=== PATIENT | male | born 1950 | race Hispanic/Latino ===

== ENCOUNTER → 2017-11-01 | Outpatient (CLI) | payer OTHER ==
[~2017-11-01] MED LIST: ASPI-1114 PO; BACL10TA PO; GLIP10TA9 PO; LOSA25TA21 PO; METF500T6 PO; METO25TA6 PO; NPH,100V11 SQ; PANT40TA PO; RANI150C4 PO; ROSU40 PO; VITAMIN B6 PO
== END | disposition home or self-care (01) ==
LOC: RAH 15:50
PROVIDERS: ATTEND Internal Medicine
DX: M54.5 Low back pain (principal)
CPT/HCPCS: 72100

== ENCOUNTER 2018-10-31 04:00 | Observation (INO) | payer OTHER ==
[~2018-10-31] VITALS: Ht 170.2 cm; Wt 101.2 kg
[~2018-10-31 04:00] MED LIST changes: -LOSA25TA21 PO; +LOSA25TA41 PO; +METF-444 PO; -METF500T6 PO
[2018-10-31 04:21] LABS: APPEARANCE,URINE Clear (CLEAR); BILIRUBIN,URINE Negative (NEGATIVE); COLOR,URINE Yellow (YELLOW); GLUCOSE, URINE (UA) 250 mg/dL (NEGATIVE); KETONES,URINE Negative (NEGATIVE); LEUKOCYTE ESTERASE ,URINE Large (NEGATIVE); NITRATE,URINE Negative (NEGATIVE); OCCULT BLOOD,URINE Small (NEGATIVE); PROTEIN,URINE Negative (NEGATIVE)
[2018-10-31 04:30] LABS: BACTERIA,URINE Few /HPF (None Seen); MUCUS,URINE Rare LPF (None Seen); SQUAMOUS EPITHELIAL CELL,UR Few /HPF (0-2); WBC,URINE 26-50 /HPF (0-1)
[2018-10-31 04:50] LABS: BASOPHILS % (AUTO) 0.4 % (0.0-5.0); EOSINOPHILS % (AUTO) 1.5 % (0.0-8.0); HEMATOCRIT 40.5 % (42-54); MEAN CORPUSCULAR VOLUME 88.1 fL (79-99); MONOCYTES % (AUTO) 3.8 % (3.0-13.0); NEUTROPHILS % (AUTO) 88.3 % (40.0-77.0); PLATELET COUNT (AUTO) 161 K/uL (130-400); RED BLOOD CELL COUNT(AUTO) 4.59 MIL/uL (4.50-6.20); RED CELL DISTRIBUTION WIDTH 13.5 % (11.0-15.5)
[2018-10-31 04:57] LABS: CREATININE 1.1 mg/dL (0.5-1.5); POTASSIUM 4.1 mmol/L (3.5-5.1)
[2018-10-31] MEDS ORDERED: PHENAZOPYRIDINE HCL 200 MG TABLET ONE (05:30)
[2018-10-31] MEDS ORDERED: CEFTRIAXONE SODIUM 1 GM ONE (05:30)
[2018-10-31] MEDS ORDERED: FENTANYL CITRATE PF 50 MCG/1 ML 2ML VIAL ONE (05:31)
[2018-10-31] MEDS ORDERED: ACETAMINOPHEN 325 MG TAB ONE (06:40)
[2018-10-31] MEDS ORDERED: ACETAMINOPHEN 325 MG TAB PO PRN ×2 (08:30→23:45)
[2018-10-31 09:00] VITALS: BP 107/66
[2018-10-31 11:00] VITALS: BP 105/62
[2018-10-31] MEDS ORDERED: CLOP75TA14 PO (11:59)
[2018-10-31] MEDS ORDERED: TAMS-1 PO (11:59)
[2018-10-31] MEDS ORDERED: ATOR40TA71 PO (11:59)
[2018-10-31] MEDS: PHENAZOPYRIDINE HCL 200 MG TABLET PO SCH ×2 (14:48→20:17)
[2018-10-31 16:00] VITALS: BP 151/84
[2018-10-31] MEDS: INSULIN HUMULIN R 100 UNIT/ML 3ML SQ SCH ×2 (16:30→21:00)
[2018-10-31 19:10] VITALS: BP 134/82
[2018-11-01 00:25] VITALS: BP 154/82
[2018-11-01 03:15] VITALS: BP 124/76
[2018-11-01] MEDS ORDERED: CEFTRIAXONE SODIUM 1 GM IVP SCH (06:00)
[2018-11-01] MEDS: INSULIN HUMULIN R 100 UNIT/ML 3ML SQ SCH (06:03)
[2018-11-01 07:30] VITALS: BP 153/78
[2018-11-01] MEDS: PHENAZOPYRIDINE HCL 200 MG TABLET PO SCH (08:24)
[2018-11-01] MEDS ORDERED: ASPIRIN 81MG TAB.CHEW PO SCH (09:00)
[2018-11-01] MEDS ORDERED: TAMSULOSIN HCL 0.4 MG CAP.ER.24H PO SCH (09:00)
[2018-11-01] MEDS ORDERED: CLOPIDOGREL BISULFATE 75 MG TAB PO SCH (09:00)
--- NOTE | 2018-11-01 10:20 | NUR ---
HOSPITALIST DR. KO IN TO SEE PATIENT. ORDERS RECEIVED FOR DISCHARGE.
[2018-11-01] MEDS ORDERED: [UNRECOGNIZED DRUG - CODE] PO (10:26)
[2018-11-01] MEDS ORDERED: PHEN-846 PO (10:33)
--- NOTE | 2018-11-01 11:00 | NUR ---
INSTRUCTIONS DISCHARGE INSTRUCTIONS GIVEN TO PATIENT USING TEACH BACK. NEW PRESCRIPTION PLACED IN PACKET ALONG WITH ALL PRINTED INFORMATION AND MD INSTRUCTIONS. NO QUESTIONS OR CONCERNS VOICED. IV REMOVED WITH TIP INTACT. DIRECT PRESSURE APPLIED UNTIL BLEEDING CONTROLLED THEN SITE COVERED WITH GAUZE AND SECURED WITH A BAND-AID. PENDING RIDE HOME.
== END 2018-11-01 11:39 | disposition home or self-care (01) ==
LOC: EDH 04:00 → EDHIP 07:50 → 4AH 09:00
PROVIDERS: ADMIT Internal Medicine; ATTEND Internal Medicine
DX: N40.0 Benign prostatic hyperplasia without lower urinary tract symptoms (principal); E11.9 Type 2 diabetes mellitus without complications; I10 Essential (primary) hypertension; Z80.0 Family history of malignant neoplasm of digestive organs; Z80.51 Family history of malignant neoplasm of kidney; Z82.0 Family history of epilepsy and other diseases of the nervous system; Z82.3 Family history of stroke; Z82.49 Family history of ischemic heart disease and other diseases of the circulatory system; Z83.3 Family history of diabetes mellitus
CPT/HCPCS: 36415; 80048; 81001; 82948 ×4; 85025; 87077; 87088; 87186; 96374; 99284; A4218; G0378 ×28; J0696 ×2; J3010

== ENCOUNTER 2018-11-15 19:22 | Inpatient (IN) | payer OTHER | END 2018-11-18 17:38 | disposition home or self-care (01) | LOC: EDH 19:22 → EDHIP 21:30 → 3BH 22:43 | DX: R07.9 Chest pain, unspecified (principal); N17.9 Acute kidney failure, unspecified; E11.65 Type 2 diabetes mellitus with hyperglycemia; Z95.5 Presence of coronary angioplasty implant and graft; N18.9 Chronic kidney disease, unspecified; E11.22 Type 2 diabetes mellitus with diabetic chronic kidney disease; I12.9 Hypertensive chronic kidney disease with stage 1 through stage 4 chronic kidney disease, or unspecified chronic kidney disease ==

== ENCOUNTER → 2019-02-20 | Outpatient (CLI) | payer OTHER ==
[~2019-02-20] MED LIST changes: +ATOR40TA71 PO; -BACL10TA PO; +CLOP75TA14 PO; -LOSA25TA41 PO; -METF-444 PO; +METO25 PO; -METO25TA6 PO; -NPH,100V11 SQ; -RANI150C4 PO; -ROSU40 PO; +TAMS-1 PO; -VITAMIN B6 PO
== END | disposition home or self-care (01) ==
LOC: SHCH 10:30
PROVIDERS: ATTEND Internal Medicine Cardiovascular Disease
DX: I65.23 Occlusion and stenosis of bilateral carotid arteries (principal)
CPT/HCPCS: 93880

== ENCOUNTER → 2022-09-22 | Outpatient (CLI) | payer OTHER ==
[~2022-09-22] MED LIST changes: +CLOP-31 PO; -CLOP75TA14 PO
== END | disposition home or self-care (01) ==
LOC: RAH 09:22
PROVIDERS: ATTEND Internal Medicine Cardiovascular Disease
DX: R60.0 Localized edema (principal); I80.201 Phlebitis and thrombophlebitis of unspecified deep vessels of right lower extremity; I25.10 Atherosclerotic heart disease of native coronary artery without angina pectoris
CPT/HCPCS: 93970

== ENCOUNTER → 2023-08-27 | Outpatient (CLI) | payer OTHER | END | disposition home or self-care (01) | LOC: SHCH 11:56 | PROVIDERS: ATTEND Internal Medicine Cardiovascular Disease | DX: I35.1 Nonrheumatic aortic (valve) insufficiency (principal); I25.10 Atherosclerotic heart disease of native coronary artery without angina pectoris; I11.9 Hypertensive heart disease without heart failure; I65.23 Occlusion and stenosis of bilateral carotid arteries | CPT/HCPCS: 93306; 93880 ==

== ENCOUNTER → 2023-08-29 | Outpatient (CLI) | payer OTHER ==
[2023-08-29] MEDS: REGADENOSON 0.4 MG/5 ML PF SYG IVP ONE (13:28)
== END | disposition home or self-care (01) ==
LOC: SHCH 08:40
PROVIDERS: ATTEND Internal Medicine Cardiovascular Disease
DX: I25.10 Atherosclerotic heart disease of native coronary artery without angina pectoris (principal); I10 Essential (primary) hypertension
CPT/HCPCS: 78452; 96374; 93017; J2785; A9500 ×2

== ENCOUNTER 2023-11-14 07:41 | Day surgery (SDC) | payer OTHER ==
[2023-11-11 10:39] LABS: BASOPHILS # (AUTO) 0.03 K/uL (0.00-0.20); BASOPHILS % (AUTO) 0.5 % (0.0-5.0); EOSINOPHILS # (AUTO) 0.21 K/uL (0.00-0.70); EOSINOPHILS % (AUTO) 3.4 % (0.0-8.0); HEMATOCRIT 40.4 % (42-54); IMMATURE GRANULOCYTE ABSOLUTE 0.08 K/uL (0-1); LYMPHOCYTES # (AUTO) 1.1 K/uL (1.0-4.8); LYMPHOCYTES % (AUTO) 18.1 % (21.0-51.0); MEAN CORPUSCULAR HEMOGLOBIN 29.9 pg (27.0-33.0); MEAN CORPUSCULAR HGB CONC 32.9 g/dL (32.0-36.0); MEAN CORPUSCULAR VOLUME 90.8 fL (79-99); MONOCYTES # (AUTO) 0.7 K/uL (0.1-1.0); MONOCYTES % (AUTO) 11.8 % (3.0-13.0); NEUTROPHILS # (AUTO) 4.1 K/uL (1.8-7.7); NEUTROPHILS % (AUTO) 64.9 % (40.0-77.0); PLATELET COUNT (AUTO) 212 K/uL (130-400); RED BLOOD CELL COUNT(AUTO) 4.45 MIL/uL (4.50-6.20); RED CELL DISTRIBUTION WIDTH 13.7 % (11.0-15.5); WHITE BLOOD COUNT (AUTO) 6.3 K/uL (4.8-10.8)
[2023-11-11 10:48] VITALS: BP 145/73; PULSE 67; RESP 16
[2023-11-11 10:51] LABS: POTASSIUM 4.3 mmol/L (3.5-5.1)
[2023-11-11 10:53] LABS: INR <= 0.93 (0.85-1.15); PROTHROMBIN TIME 10.3 SEC (9.6-11.6)
[2023-11-11 11:46] LABS: APPEARANCE,URINE CLEAR (CLEAR); BILIRUBIN,URINE NEGATIVE (NEGATIVE); COLOR,URINE YELLOW (YELLOW); GLUCOSE, URINE (UA) >=1000 mg/dL (NEGATIVE); KETONES,URINE NEGATIVE (NEGATIVE); LEUKOCYTE ESTERASE ,URINE NEGATIVE Leu/uL (NEGATIVE); NITRATE,URINE NEGATIVE (NEGATIVE); OCCULT BLOOD,URINE NEGATIVE (NEGATIVE); PH,URINE 5.5 (5.0-8.0); PROTEIN,URINE 10 mg/dL (NEGATIVE); UROBILINOGEN,URINE 0.2 mg/dL (0.2-1.0)
[2023-11-11 11:48] LABS: ADD UA MICROSCOPIC YES
[2023-11-11 11:50] LABS: MUCUS,URINE RARE LPF (None Seen); RBC,URINE 0-1 /HPF (0-1); SQUAMOUS EPITHELIAL CELL,UR RARE /HPF (0-2); WBC,URINE 0-1 /HPF (0-1)
[2023-11-11 12:00] LABS: B-TYPE NATRIURETIC PEPTIDE 62 pg/mL (0-100)
[~2023-11-14] VITALS: Ht 170.2 cm; Wt 87.7 kg
[2023-11-14] VITALS (10 sets, daily range): BP systolic 115–169; BP diastolic 66–91; PULSE 63–83; RESP 14–18
[~2023-11-14 07:41] MED LIST changes: +ACET-2079 PO; +ACET-2123 PO; +ALOG25TA2 PO; -ASPI-1114 PO; -CLOP-31 PO; +CYAN-106 PO; +EMPA25TA PO; +FAMO20TA8 PO; +GABA-529 PO; -GLIP10TA9 PO; +METF-444 PO; +METF-446 PO; +METO-408 PO; -METO25 PO; +NIFE-40 PO; -PANT40TA PO; +PANT40TA54 PO; +PLEC3TAB2 PO; +VIT1CAPS47 PO
[2023-11-14] MEDS: 0.9%NACL 1000ML 1,000 ML IV ONE (09:05)
[2023-11-14] MEDS ORDERED: IOHEXOL 350 MG/ML 100ML INFUS..BTL IV ONE (11:22)
[2023-11-14] MEDS ORDERED: IOHEXOL-350 50ML VIAL IV ONE (11:22)
[2023-11-14] MEDS ORDERED: HEPARIN 10,000 UNIT/10ML (1,000 UNIT/ML) VIAL ONE (11:22)
[2023-11-14] MEDS ORDERED: LIDOCAINE HCL 400MG/20ML VIAL ONE (11:22)
[2023-11-14] MEDS ORDERED: NICARDIPINE 25MG INJ IV ONE (11:34)
[2023-11-14] MEDS ORDERED: MEPERIDINE-PF 25 MG/ML SYG ONE ×3 (11:40→12:20)
[2023-11-14] MEDS ORDERED: MIDAZOLAM HCL 1 MG/ML 2ML VIAL ONE ×3 (11:41→12:20)
[2023-11-14] MEDS ORDERED: DEXTROSE 50%-WATER 50 ML DISP.SYRIN IV PRN (13:00)
[2023-11-14] MEDS ORDERED: GLUCAGON 1MG KIT 1 MG ML IM PRN (13:00)
[2023-11-14] MEDS ORDERED: 0.9%NACL 1000ML 1,000 ML IV SCH (13:00)
[2023-11-14] MEDS ORDERED: INSULIN HUMULIN R 100 UNIT/ML 3ML SQ SCH (16:30)
== END 2023-11-14 16:40 | disposition home or self-care (01) ==
LOC: DAH 07:41
PROVIDERS: ATTEND Internal Medicine Cardiovascular Disease
DX: I25.119 Atherosclerotic heart disease of native coronary artery with unspecified angina pectoris (principal); I10 Essential (primary) hypertension; K21.9 Gastro-esophageal reflux disease without esophagitis; Z95.5 Presence of coronary angioplasty implant and graft; Z82.3 Family history of stroke; Z82.49 Family history of ischemic heart disease and other diseases of the circulatory system; Z83.79 Family history of other diseases of the digestive system; Z83.3 Family history of diabetes mellitus; Z80.51 Family history of malignant neoplasm of kidney; Z80.0 Family history of malignant neoplasm of digestive organs; Z87.891 Personal history of nicotine dependence; Z79.899 Other long term (current) drug therapy; Z98.890 Other specified postprocedural states
CPT/HCPCS: 80048; 83880; 85025; 85610; 85730; 81001; 36415; 71045; 93005; 93458; 82948 ×2; C1769 ×2; A4649; C1894; J3490 ×2; J7030; J1644 ×2; J2250 ×3; J2175 ×3; Q9967; A4215; A4222; A4221; A4663; A4216; A4606; Q9965 ×2; A4223 ×3; 96360; 96361; 99156; 99157

== ENCOUNTER 2023-12-19 10:48 | Emergency (ER) | payer OTHER ==
[~2023-12-19] VITALS: Ht 170.2 cm; Wt 83.5 kg
[~2023-12-19 10:48] MED LIST changes: -ACET-2079 PO; -ACET-2123 PO; +ASPI-1443 PO; -GABA-529 PO; +MULT-1289 PO; -NIFE-40 PO; -PANT40TA54 PO
[2023-12-19 12:04] LABS: BASOPHILS # (AUTO) 0.02 K/uL (0.00-0.20); BASOPHILS % (AUTO) 0.3 % (0.0-5.0); EOSINOPHILS # (AUTO) 0.17 K/uL (0.00-0.70); EOSINOPHILS % (AUTO) 2.6 % (0.0-8.0); HEMATOCRIT 31.9 % (42-54); LYMPHOCYTES % (AUTO) 14.8 % (21.0-51.0); MEAN CORPUSCULAR HEMOGLOBIN 29.3 pg (27.0-33.0); MEAN CORPUSCULAR HGB CONC 33.2 g/dL (32.0-36.0); MEAN CORPUSCULAR VOLUME 88.1 fL (79-99); MONOCYTES # (AUTO) 0.8 K/uL (0.1-1.0); MONOCYTES % (AUTO) 12.1 % (3.0-13.0); NEUTROPHILS # (AUTO) 4.5 K/uL (1.8-7.7); NEUTROPHILS % (AUTO) 68.7 % (40.0-77.0); PLATELET COUNT (AUTO) 249 K/uL (130-400); RED BLOOD CELL COUNT(AUTO) 3.62 MIL/uL (4.50-6.20); RED CELL DISTRIBUTION WIDTH 12.9 % (11.0-15.5); WHITE BLOOD COUNT (AUTO) 6.6 K/uL (4.8-10.8)
[2023-12-19] MEDS: ACETAMINOPHEN WITH CODEINE 1 TAB TAB PO ONE (12:05)
[2023-12-19] MEDS: CEFTRIAXONE 2GM VIAL IVPB ONE (12:29)
[2023-12-19] MEDS: 0.9%NACL 1000ML 1,983 ML IV ONE (12:30)
[2023-12-19 13:12] LABS: CREATININE 0.9 mg/dL (0.5-1.3); POTASSIUM 3.7 mmol/L (3.5-5.1)
[2023-12-19 14:00] VITALS: BP 142/74; PULSE 80; RESP 18; O2SAT 99
[2023-12-19 14:13] LABS: APPEARANCE,URINE CLEAR (CLEAR); BILIRUBIN,URINE NEGATIVE (NEGATIVE); COLOR,URINE COLORLESS (YELLOW); GLUCOSE, URINE (UA) >=1000 mg/dL (NEGATIVE); KETONES,URINE NEGATIVE (NEGATIVE); LEUKOCYTE ESTERASE ,URINE NEGATIVE Leu/uL (NEGATIVE); NITRATE,URINE NEGATIVE (NEGATIVE); OCCULT BLOOD,URINE NEGATIVE (NEGATIVE); PH,URINE 6.5 (5.0-8.0); PROTEIN,URINE NEGATIVE (NEGATIVE); UROBILINOGEN,URINE 0.2 mg/dL (0.2-1.0)
[2023-12-19 14:14] LABS: ADD UA MICROSCOPIC YES
[2023-12-19 14:38] LABS: RBC,URINE 0-1 /HPF (0-1); SQUAMOUS EPITHELIAL CELL,UR RARE /HPF (0-2); WBC,URINE 0-1 /HPF (0-1)
[2023-12-19] MEDS ORDERED: CLIN-141 PO (14:49)
== END 2023-12-19 15:10 | disposition home or self-care (01) ==
LOC: EDH 10:48
DX: M79.662 Pain in left lower leg (principal); R65.10 Systemic inflammatory response syndrome (SIRS) of non-infectious origin without acute organ dysfunction; E11.9 Type 2 diabetes mellitus without complications; E78.00 Pure hypercholesterolemia, unspecified; I10 Essential (primary) hypertension; Z95.1 Presence of aortocoronary bypass graft
CPT/HCPCS: 99291; 96365; 93971; 96366; 80048; 85025; 87040 ×2; 83605 ×2; 81001; 36415; J7030; J0696

== ENCOUNTER → 2024-08-31 | Outpatient (CLI) | payer OTHER ==
[~2024-08-31] MED LIST changes: +CLIN-141 PO
[2024-08-31 15:39] LABS: CREATININE 0.8 mg/dL (0.5-1.3); POTASSIUM 4.5 mmol/L (3.5-5.1)
== END | disposition home or self-care (01) ==
LOC: LAB 14:42
PROVIDERS: ATTEND Nurse Practitioner Acute Care
DX: R07.9 Chest pain, unspecified (principal)
CPT/HCPCS: 36415; 80048